=== PATIENT | male | born 2000 | race Caucasian/White ===

== ENCOUNTER 2022-02-17 00:46 | Emergency (ER) | payer OTHER ==
[~2022-02-17] VITALS: Ht 188 cm; Wt 145.1 kg
[2022-02-17 01:00] VITALS: BP_SYST 117
[2022-02-17 01:11] VITALS: BP_SYST 117
== END 2022-02-17 01:11 | disposition home or self-care (01) ==
LOC: SED 00:46
DX: R05.9 Cough, unspecified (principal); R42 Dizziness and giddiness; R50.9 Fever, unspecified; Z79.899 Other long term (current) drug therapy; Z20.822 Contact with and (suspected) exposure to COVID-19
CPT/HCPCS: 36415; 99283